=== PATIENT | female | born 1990 | race Caucasian/White ===

== ENCOUNTER 2021-01-27 09:37 | Day surgery (SDC) | payer MEDICAID, SELFPAY ==
[2021-01-27] VITALS (9 sets, daily range): BP systolic 112–126; BP diastolic 61–79; PULSE 53–80; RESP 10–18; TEMP 36.4–37.2; O2SAT 96–100
--- NOTE | ~2021-01-27 | US_ITS ---
EXAMINATION: US OB <=14 wk fetus w TV DATE: 01/27/2021 10:57 INDICATION: Right-sided pelvic pain with positive test, first trimester by last menstrual p eriod. TECHNIQUE: Real-time pelvic ultrasound utilizing both a transvaginal and transabdominal probe was pe rformed. The interpreting radiologist was not present for the study. COMPARISON: None. FINDINGS: The uterus measures 8.8 x 3.7 x 4.4 cm. Endometrial complex measures 2-3 mm throughout the majority of the uterus appearing to be slightly to 4 mm at the fundus. No intrauterine gestational sac or flui d within the endometrial canal. The left ovary measures 3.1 x 2.0 x 2.0 cm with internal vascular kath w on color Doppler. 7.2 x 3.3 x 4.2 cm heterogeneous mass in the right adnexal region with internal v ascular flow on color Doppler. There is moderate amount free fluid in the pelvis portion of which are anechoic and other portions of which are hypoechoic suggesting possibility of hemoperitoneum. IMPRESSION: 1. No intrauterine gestational sac and differential includes early, failed or ectopic . 2. Moderate amount of complex appearing free fluid in the pelvis which could represent hemoperitoneum with 7.2 x 3.3 x 4.2 cm mass in the right adnexal region and could not exclude an ectopic . Dr. Tinajero discussed these findings with Dr. Josie Wilson at 11:15 AM. Reviewed, dictated and finalized at location A. COVER ESTIMATOR IMPRESSION: 1. No intrauterine gestational sac and differential includes early, failed or e ctopic . 2. Moderate amount of complex appearing free fluid in the pelvis which could re present hemoperitoneum with 7.2 x 3.3 x 4.2 cm mass in the right adnexal region and could not exclude an ectopic . Dr. Tinajero discussed these findi ngs with Dr. Josie Wilson at 11:15 AM.
[2021-01-27 10:16] LABS: Basophils Absolute Auto 0.1 K/mm3 (0.0-0.1); Basophils Percent Auto 0.8 % (0.2-1.2); Eosinophils Absolute Auto 0.1 K/mm3 (0-0.3); Eosinophils Percent Auto 0.8 % (0-4.4); Hematocrit 32.4 % (37.0-47.0); Hemoglobin 11.4 g/dL (12.0-15.0); Immature Granulocyte Absolute 0.03 K/mm3 (0.00-0.031); Immature Granulocyte Percent A 0.4 % (0-0.5); Lymphocytes Absolute Auto 1.29 K/mm3 (0.9-3.2); Lymphocytes Percent Auto 16.6 % (18.3-44.2); Mean Corpuscular HGB Conc 35.2 g/dl (32-36); Mean Corpuscular Hemoglobin 31.8 pg (26-34); Mean Corpuscular Volume 90.3 fl (80-100); Mean Platelet Volume 9.9 fl (7.4-10.4); Monocytes Absolute Auto 0.6 K/mm3 (0.1-0.6); Monocytes Percent Auto 7.3 % (2.6-8.5); Neutrophils Absolute Auto 5.8 K/mm3 (1.3-6.7); Neutrophils Percent Auto 74.1 % (45.5-73.1); Platelet Count Result 214 k/mm3 (150-375); Red Blood Count 3.59 M/mm3 (4.2-5.4); Red Cell Distribution Width 11.8 % (11.5-14.5); White Blood Count 7.8 K/mm3 (4.5-10.0)
[2021-01-27 10:23] LABS: Add Urine Microscopic? YES; Appearance Urine Cloudy (Clear); Bacteria Urine Trace /hpf; Bilirubin Urine Negative (Negative); Blood Urine 3+ (Negative); Color Urine Yellow (Yellow); Glucose Urine UA Negative (Negative); Ketones Urine Negative (Negative); Leukocyte Esterase Ur Negative LEU/UL (Negative); Mucus Urine Heavy /lpf; Nitrate Urine Negative (Negative); Protein Urine 2+ mg/dL (Negative); RBC Urine >75 /hpf (0-2); Specific Grav Ur 1.028 (1.001-1.035); Squamous Epithelial Cell Urine Many /hpf (Few); Urobilinogen Urine Negative mg/dL (<2.0)
[2021-01-27 10:28] LABS: Alanine Aminotransferase 11 U/L (4-35); Alkaline Phosphatase 56 U/L (38-126); Anion Gap 5 mmol/L (8-16); Aspartate Amino Transferase 18 U/L (14-36); Bilirubin,Total 0.7 mg/dL (0.2-1.3); Blood Urea Nitrogen 8 mg/dL (7-17); Carbon Dioxide 24 mmol/L (22-30); Chloride 107 mmol/L (98-107); Estimated CRCL calculation 95 ml/min; Estimated Glomerular Filt Rate > 60; Glucose 104 mg/dL (65-105); Lipase 27 U/L (23-300); Potassium 3.8 mmol/L (3.4-5.0); Sodium 136 mmol/L (137-145)
--- NOTE | 2021-01-27 10:59 | ED.ABDPAIN ---
HPI - Abdominal Pain General Chief Complaint: Abdominal Pain <SUDHA Smalls Last Filed: 01/27/21 12:29> Stated Complaint: right abd pain <SUDHA Smalls Last Filed: 01/27/21 12:29> Time Seen by Provider: 01/27/21 10:13 <Josie Wilson PA-C - Last Filed: 01/27/21 12:29> Source: patient <SUDHA Smalls Last Filed: 01/27/21 12:29> Mode of arrival: ambulatory <SUDHA Smalls Last Filed: 01/27/21 12:29> Limitations: no limitations <SUDHA Smalls Last Filed: 01/27/21 12:29> History of Present Illness HPI narrative: This is a 31-year-old female that presents to the emergency department for right-sided abdominal pain since last night. Reports that the pain is a constant dull ache. Is intermittently more sharp in nature. She has tried taking Tylenol and anti-inflammatories through the night without relief. Associated with some nausea. Also reports abnormal uterine bleeding. Reports she had her cycle at the beginning of this month. Reports about a week later she started to have bleeding again. She is currently still having bleeding. Denies fever, vomiting, dysuria, or hematuria. <Josie Wilson PA-C - Last Filed: 01/27/21 12:29> Related Data Home Medications: Home Medications Medication Instructions Recorded Confirmed lorazepam 0.5 mg tablet 0.5 mg PO TID PRN 10/14/19 10/14/19 <Josie Wislon PA-C - Last Filed: 01/27/21 12:29> Allergies/Adverse Reactions: Allergies Allergy/AdvReac Type Severity Reaction Status Date / Time latex Allergy Mild Rash Verified 01/27/21 10:14 <SUDHA Smalls Last Filed: 01/27/21 12:29> Review of Systems Review of Systems: Narrative: CONSTITUTIONAL: Denies fever GASTROINTESTINAL: Reports abdominal/pelvic pain, nausea. Denies vomiting, or diarrhea. GENITOURINARY: Denies dysuria or hematuria. <Josie Wilson PA-C - Last Filed: 01/27/21 12:29> All systems reviewed & are unremarkable except as noted in HPI and below <Josie Wilson PA-C - Last Filed: 01/27/21 12:29> PMFSH Past Medical History Medical History: Medical History Anxiety Recurrent major depressive disorder, in partial remission <Josie Wilson PA-C - Last Filed: 01/27/21 12:29> Surgical History Surgical History: Surgical History [place] teeth removed <Josie Wilson PA-C - Last Filed: 01/27/21 12:29> Family History Family History: Family History Mother Depression Anxiety Grandparent Breast cancer Father In good health <Josie Wilson PA-C - Last Filed: 01/27/21 12:29> Social History Social History: Social History Smoking status: Never smoker Second hand tobacco smoke exposure: No Alcohol intake: current Substance use: never Substance use type: does not use Additional living arrangements comments: boyfriend and son Gender identity (if verbalized by the patient): Female Spiritual care concerns: No <Josie Wilson PA-C - Last Filed: 01/27/21 12:29> Exam Narrative: Exam Narrative: GENERAL: Well-appearing, well-nourished, and in no acute distress. HEAD: Normocephalic, atraumatic. EYES: EOMI. CHEST: Clear to auscultation. No respiratory distress. No wheezes rales or rhonchi HEART: Regular rate and rhythm. No murmur heard. Normal peripheral pulses. ABDOMEN: Soft, nondistended, normal active bowel sounds. Tender to palpation in the right lower quadrant, without guarding. No CVA tenderness EXTREMITIES: Normal range of motion. No edema. SKIN: Warm, dry, no rash. NEURO: No focal deficits. Alert and oriented x3. PSYCH: Normal mood and affect <Josie Wilson PA-C - Last Filed: 01/27/21 12:29> Course HEALTH SAFETY AND ENVIRONMENT MANAGER/NISHA
[2021-01-27 12:20] LABS: Prothrombin Time 13.8 Seconds (11.1-14.7)
--- NOTE | 2021-01-27 12:50 | WPDHPUPDATE1 ---
History and Physical Update Update Date/Time: 01/27/21 12:50 History and Physical has been reviewed, including an updated exam of the patient. There are NO changes in the patient's condition. Risks, benefits, and alternatives have been discussed and questions answered. Patient agrees to proceed with procedure.
--- NOTE | 2021-01-27 12:50 | PM.IMHP ---
H&P: HPI History of Present Illness Date/Time: 01/27/21 12:50 Chief Complaint: Pelvic pain Narrative: Lexii Barnes is a 31 year old female, multiparous, presented the emergency department with pelvic pain. She was found to be . Ultrasound revealed a the 6 cm pelvic mass and free fluid. And there is no intrauterine gestation. She has a HCG of 4000. She has marked pain pain. She denies any nausea, vomiting, fever, chills. She denies any chest pain or shortness of breath. Review of Systems Constitutional: Constitutional: Reports no additional constitutional complaints, Denies fatigue, Denies headache(s), Denies lethargy and Denies weakness Eyes: Eyes: Reports no additional eye complaints, Denies blurry vision and Denies photophobia ENT: Reports as per HPI, Denies headache(s) and Denies neck pain Cardiovascular: Cardiovascular: Denies chest pain, Denies diaphoresis, Denies leg edema, Denies palpitations and Denies dyspnea Respiratory: Respiratory: Denies hemoptysis, Denies dyspnea and Denies wheezing Gastrointestinal: Gastrointestinal: Denies abdominal pain, Denies melena, Denies bloating, Denies hematochezia, Denies nausea and Denies vomiting Genitourinary: Genitourinary: Reports no additional female genitourinary complaints Musculoskeletal: Musculoskeletal: Denies joint swelling, Denies neck pain, Denies numbness and Denies stiffness Neurologic: Denies Abnormal speech present, Denies confusion, Denies headache(s), Denies numbness and Denies weakness Psychiatric: Psychiatric: Denies anxiety, Denies confusion, Denies depression, Denies homicidal ideation and Denies suicidal ideation Endocrine: Endocrine: Denies fatigue and Denies palpitations Allergic/Immunologic: Allergic/Immunologic: Denies wheezing PMF Past Medical History Medical History (Updated 01/27/21 @ 12:51 by Nannette Tolentino MD) Anxiety Recurrent major depressive disorder, in partial remission Surgical History Surgical History (Updated 10/20/19 @ 09:08 by Radha Lozano MA) [place] teeth removed Family History Family History (Updated 10/20/19 @ 09:11 by Radha Lozano MA) Mother Depression Anxiety Grandparent Breast cancer Father In good health Social History Social History (Updated 10/20/19 @ 09:12 by Radha Lozano MA) Smoking status: Never smoker Second hand tobacco smoke exposure: No Alcohol intake: current Substance use: never Substance use type: does not use Additional living arrangements comments: boyfriend and son Gender identity (if verbalized by the patient): Female Spiritual care concerns: No Meds Home Medications and Allergies Home Medications Medication Instructions Recorded Confirmed Type lorazepam 0.5 mg tablet 0.5 mg PO TID PRN 10/14/19 10/14/19 History venlafaxine 37.5 mg See Rx Instructions .ROUTE 03/23/20 Rx capsule,extended release 24 hr .COMPLEX #180 cap Allergies Allergy/AdvReac Type Severity Reaction Status Date / Time latex Allergy Mild Rash Verified 01/27/21 10:14 Vital Signs Vital Signs - 24 hr 01/27/21 09:49 01/27/21 11:22 01/27/21 11:29 Temperature 97.5 F L 97.5 F L Pulse Rate 58 L 80 Respiratory Rate 16 18 Blood Pressure 126/61 117/65 Pulse Oximetry 99 98 01/27/21 12:42 Temperature Pulse Rate 58 L Respiratory Rate 18 Blood Pressure 115/72 Pulse Oximetry 99 Exam Const: General: healthy appearing, comfortable and no acute distress; No confusion Orientation/consciousness: No confusion Eyes: Direct Ophthalmoscopy: No photophobia Resp: Auscultation: clear to auscultation bilaterally, no rales, no rhonchi and no wheezes Cardio: Rate: regular rate Heart sounds: no click, no murmurs and no rubs GI: Inspection: non-distended GI Palp: No abdominal tenderness Auscultation: normal bowel sounds Neuro: General: No confusion Speech: No Abnormal speech present Extrem: General: normal to insp
[2021-01-27] MEDS: LACTATED RINGERS 1,000 ML 30 ML IV CONT ×2 (13:20→16:34)
--- NOTE | 2021-01-27 14:24 | WPDANESEPPF ---
Anes - Initial Pre Proc Eval Procedure: Operation Date: 01/27/21 13:30 Proposed Procedures p Diagnostic Laparoscopy - Nannette Tolentino MD Date/Time: 01/27/21 14:24 Surgeon: Nannette Tolentino MD Pre Op Diagnosis: right abd pain Patient Data Age: 31 Gender: F Height: 5 ft 3 in Weight: 52 kg Last Vital Signs Temp 36.4 C L 01/27/21 11:22 Pulse 58 L 01/27/21 12:42 Resp 18 01/27/21 12:42 BP 115/72 01/27/21 12:42 Pulse Ox 99 01/27/21 12:42 Allergies Allergy/AdvReac Type Severity Reaction Status Date / Time latex Allergy Mild Rash Verified 01/27/21 10:14 Home Medications Medication Instructions Recorded Confirmed Type lorazepam 0.5 mg tablet 0.5 mg PO TID PRN 10/14/19 10/14/19 History venlafaxine 37.5 mg See Rx Instructions .ROUTE 03/23/20 Rx capsule,extended release 24 hr .COMPLEX #180 cap Laboratory Tests 01/27/21 01/27/21 01/27/21 09:58 09:58 10:01 WBC 7.8 K/mm3 K/mm3 (4.5-10.0) RBC 3.59 M/mm3 L M/mm3 (4.2-5.4) Hgb 11.4 g/dL L g/dL (12.0-15.0) Hct 32.4 % L % (37.0-47.0) MCV 90.3 fl fl (80-100) MCH 31.8 pg pg (26-34) MCHC 35.2 g/dl g/dl (32-36) RDW 11.8 % % (11.5-14.5) Plt Count 214 k/mm3 k/mm3 (150-375) MPV 9.9 fl fl (7.4-10.4) Immature Gran % (Auto) 0.4 % % (0-0.5) Neut % (Auto) 74.1 % H % (45.5-73.1) Lymph % (Auto) 16.6 % L % (18.3-44.2) Bryan % (Auto) 7.3 % % (2.6-8.5) Eos % (Auto) 0.8 % % (0-4.4) Baso % (Auto) 0.8 % % (0.2-1.2) Lymph # (Auto) 1.29 K/mm3 K/mm3 (0.9-3.2) Bryan # (Auto) 0.6 K/mm3 K/mm3 (0.1-0.6) Eos # (Auto) 0.1 K/mm3 K/mm3 (0-0.3) Baso # (Auto) 0.1 K/mm3 K/mm3 (0.0-0.1) Abs Immat Gran (auto) 0.03 K/mm3 K/mm3 (0.00-0.031) Absolute Neuts (auto) 5.8 K/mm3 K/mm3 (1.3-6.7) Absolute Nucleated RBC 0.0 K/mm3 K/mm3 (0.0-0.012) Nucleated RBC % 0.0 % % (0.0-0.2) PT INR APTT Sodium 136 mmol/L L mmol/L (137-145) Potassium 3.8 mmol/L mmol/L (3.4-5.0) Chloride 107 mmol/L mmol/L (98-107) Carbon Dioxide 24 mmol/L mmol/L (22-30) Anion Gap 5 mmol/L L mmol/L (8-16) BUN 8 mg/dL mg/dL (7-17) Creatinine 0.60 mg/dL L mg/dL (0.7-1.0) Estim Creat Clear Calc 95 ml/min ml/min Estimated GFR > 60 (59 - ) Glucose 104 mg/dL mg/dL (65-105) Calcium 9.0 mg/dL mg/dL (8.4-10.2) Total Bilirubin 0.7 mg/dL mg/dL (0.2-1.3) AST 18 U/L U/L (14-36) ALT 11 U/L U/L (4-35) Alkaline Phosphatase 56 U/L U/L (38-126) Total Protein 7.0 g/dL g/dL (6.3-8.2) Albumin 4.0 g/dL g/dL (3.5-5.1) Lipase 27 U/L U/L (23-300) Beta HCG, Quant Urine Color Yellow (Yellow) Urine Appearance Cloudy H (Clear) Urine pH 5.0 (5.0-9.0) Ur Specific [place] 1.028 (1.001-1.035) Urine Protein 2+ mg/dL H mg/dL (Negative) Urine Glucose (UA) Negative mg/dL mg/dL (Negative) Urine Ketones Negative mg/dL mg/dL (Negative) Ur Blood (Man) 3+ H (Negative) Urine Nitrate Negative (Negative) Urine Bilirubin Negative (Negative) Urine Urobilinogen Negative mg/dL mg/dL (<2.0) Leukocyte Esterase Rfl Negative SOREN/UL SOREN/UL (Negative) Urine RBC >75 /hpf H /hpf (0-2) Urine WBC 7-9 /hpf H /hpf Ur Squamous Epith Cells Many /hpf H /hpf (Few) Urine Bacteria Trace /hpf /hpf Urine Mucus Heavy /lpf H /lpf Blood Type Antibody Screen Screen Baby's Blood Type Baby's ALIA
[2021-01-27] MEDS: SCOPOLAMINE 1.5 MG PATCH TRANSDERM (14:46)
--- NOTE | 2021-01-27 16:33 | P.OP_ITS ---
Procedure Note - Detailed Date of procedure: 01/27/21 Pre-op diagnosis: right abd pain Ectopic , hemoperitoneum Procedure performed: Laparoscopic right salpingectomy Description of procedure: The patient was taken the operating room. She was prepped and draped in the dorsal lithotomy position after induction of general anesthesia. A 5 mm left upper quadrant incision was made in the abdominal skin with a scalpel. A 5 mm trocar was inserted the intra-abdominal cavity under direct visualization of the scope. A 5 mm left lower quadrant incision was made with the scalp on the abdominal skin and a 5 mm trocar was inserted the intra- abdominal cavity under direct visualization of the scope. A 5 mm infraumbilical incision was made with scalpel and a 5 mm trocar was inserted into the intra- abdominal cavity under direct visualization of the scope. Pelvis was examined. There were large clots a distended tube containing hematomas. The entire tube was distended. The mesosalpinx in the paratubal area was cauterized with bipolar cautery. The paratubal tissue was cauterized and transected in stepwise fashion around the tube to the cornual region of the tube. The tube was transected there and cauterized. The left lower quadrant trocar was removed and the incision was expanded to 11 mm. 11 mm trocar was inserted. The tube was taken out the left lower quadrant trocar site in an endobag. It was placed in the endobag and pulled through the trocar site and brought through the incision. Trocar was replaced. The pelvis was then irrigated. The pelvis was examined. The right adnexa was cauterized and 1 of the cut surfaces to make it completely hemostatic. The pelvis was irrigated with copious amounts of normal saline. The pneumoperitoneum was reduced. The trocars were removed. The patient was taken recovery room stable condition. Sponge lap and needle counts were correct x2. Anesthesia: GETA Surgeon: Nannette Tolentino MD Estimated blood loss (mL): 20 Drains: No Packing: No Complications: No immediate complications Condition: stable Disposition: PACU Findings: Distention of the fallopian tube with hematoma involving 2/3 of the tube. Large hemoperitoneum in the pelvis. Large clots.
[2021-01-27] MEDS: fentaNYL CITRATE INJ (*CRX) 100 MCG/2 ML VIAL 25 MCG IV PUSH ×4 (16:35→17:10)
[2021-01-27] MEDS: oxyCODONE HCL (*CRX) 5 MG TAB IR PO (17:48)
== END 2021-01-27 18:05 | disposition home or self-care (01) ==
LOC: ANHED 10:13 → ANHSURGERY 11:36
PROVIDERS: Physician Assistant; Emergency Provider Emergency Medicine; Visit Provider Obstetrics & Gynecology
PROC: (CPT 49320; principal; 2021-01-27 13:30)
DX: O00.101 Right tubal pregnancy without intrauterine pregnancy (principal); F41.9 Anxiety disorder, unspecified; F32.9 Major depressive disorder, single episode, unspecified; K66.1 Hemoperitoneum
CPT/HCPCS: 59151; 36415; 76801; 76817; 80053; 81001; 81025; 83690; 84702; 85025; 85461; 85610; 85730; 87086; 88305; 96365; 99285; A9270; J0131; J1100; J1170; J2250; J2405; J2704; J2710; J3010; J7030; J7120